=== PATIENT | male | born 1955 | race Caucasian/White ===

== ENCOUNTER 2016-11-18 08:41 | Day surgery (SDC) | payer BC ==
[2016-11-18 09:14] VITALS: BP 145/84; PULSE 71; RESP 20; TEMP 98.3
--- NOTE | 2016-11-18 11:39 | US ---
ULTRASOUND GUIDED FNA THYROID BIOPSY: CLINICAL HISTORY: Palpable abnormality left axilla FINDINGS: The procedure was explained to the patient. The risks, complications, benefits and alternatives were discussed and any questions were answered. Informed consent was obtained. Patient was placed supin e on the ultrasound table and prepped and draped in the usual sterile fashion. Utilizing a 18-gauge and 16-gauge core biopsy needle, five passes were made into the left axilla nodule. Note is made the lesion is somewhat nondescript but overlies area of palpable abnormality. Possible lipoma. Other jose luis ologies not excluded. Patient was stable throughout the procedure. Pathology is pending. All elements of maximal barrier technique were utilized. IMPRESSION: 1. Successful ultrasound guided core biopsy left axilla nodule. Pathology pending.
== END 2016-11-18 10:15 | disposition home or self-care (01) ==
LOC: RADPROMAIN 08:41
PROVIDERS: ATTEND Surgery
DX: R22.9 Localized swelling, mass and lump, unspecified (principal); L98.9 Disorder of the skin and subcutaneous tissue, unspecified
CPT/HCPCS: 11100; 20206; 76942; 88305

== ENCOUNTER → 2019-06-29 | Day surgery (SDC) | payer MEDICARE, BC ==
[2019-06-27 11:41] VITALS: BMI 27.9
[~2019-06-29] MED LIST: LACTATED RINGERS 1,000 ML IV ONE; LACTATED RINGERS 1,000 ML IV SCH; LIDOCAINE 1% 20 ML VIAL (10MG/ML) FOR IV START INTRADERMA PRN; LIDOCAINE 1% INJ 10MG/ML (20 ML MDV) ONE; PROPOFOL 10 MG/ML 20 ML VIAL IV ONE
[2019-06-29 09:04] VITALS: TEMP 98
--- NOTE | 2019-06-29 10:10 | P.PCN ---
Date of Procedure: 06/29/19 Procedure(s) Performed: BRIEF HISTORY: Patient is a 63-year-old pleasant male scheduled for an elective colonoscopy as a part of evaluation of prior history of colon polyps. Last colonoscopy was 5 years ago. PROCEDURE PERFORMED: Colonoscopy. PREOPERATIVE DIAGNOSIS: History of colon polyps. IV sedation per Anesthesia. PROCEDURE: After informed consent was obtained, the patient, was brought into the endoscopy unit. IV sedation was administered by Anesthesia under continuous monitoring. Digital rectal examination was normal. Initially the Olympus CF-160 flexible video colonoscope was then inserted in the rectum, gradually advanced into the cecum without any difficulty. Careful examination was performed as the scope was gradually being withdrawn. Ileocecal valve and the appendiceal orifice were visualized and appeared normal. Prep was excellent. Mucosa of the cecum, ascending colon, transverse colon, descending colon, sigmoid colon, and rectum appeared normal. Retroflexion was performed in the rectum and no lesions were seen. The patient tolerated the procedure well. IMPRESSION: Normal-appearing colon from rectum to cecum with no evidence of colorectal neoplasia . RECOMMENDATIONS: Findings of this examination were discussed with the patient as well as his family. He was advised to have a repeat surveillance colonoscopy in 5 years from now because of the prior history of colon polyps.
[2019-06-29 10:14] VITALS: RESP 16
[2019-06-29 10:34] VITALS: BP 138/80; PULSE 74
== END ==
LOC: ORWHC2ENDO 08:44
PROVIDERS: ATTEND Internal Medicine Gastroenterology
DX: Z12.11 Encounter for screening for malignant neoplasm of colon (principal); I10 Essential (primary) hypertension; K21.9 Gastro-esophageal reflux disease without esophagitis; Z86.010 Personal history of colon polyps; Z88.5 Allergy status to narcotic agent; Z87.442 Personal history of urinary calculi; Z79.82 Long term (current) use of aspirin; Z79.899 Other long term (current) drug therapy; Z98.890 Other specified postprocedural states
CPT/HCPCS: 45378

== ENCOUNTER → 2020-03-20 | Outpatient (CLI) | payer MEDICARE, BC ==
--- NOTE | 2020-03-20 15:53 | US ---
EXAMINATION TYPE: US venous doppler duplex LE RT DATE OF EXAM: 03/20/2020 3:41 PM COMPARISON: NONE CLINICAL HISTORY: I80.9 Phlebitis and thrombophlebitis. edema got leg stepped on by a horse SIDE PERFORMED: Right TECHNIQUE: The lower extremity deep venous system is examined utilizing real time linear array sonog harinder with graded compression, doppler sonography and color-flow sonography. VESSELS IMAGED: External Iliac Vein (EIV) Common Femoral Vein Deep Femoral Vein Greater Saphenous Vein * Femoral Vein Popliteal Vein Small Saphenous Vein * Proximal Calf Veins (* superficial vessels) Right Leg: Negative for DVT Grayscale, color doppler, spectral doppler imaging performed of the deep veins of the right lower ext remity. There is normal flow, compressibility, vascular waveforms. IMPRESSION: No ultrasound evidence for acute DVT in the right lower extremity.
== END | disposition home or self-care (01) ==
LOC: RADUSWWP 15:13
PROVIDERS: ATTEND Physician Assistant
DX: I80.9 Phlebitis and thrombophlebitis of unspecified site (principal)

== ENCOUNTER → 2020-08-18 | Outpatient (CLI) | payer MEDICARE, BC ==
[2020-08-18 11:26] LABS: Creatine Kinase MB 0.3 ng/mL (0.0-2.4); Troponin I <0.012 ng/mL (0.000-0.034)
== END | disposition home or self-care (01) ==
LOC: LABWHC1 10:02
PROVIDERS: ATTEND Family Medicine
DX: R06.09 Other forms of dyspnea (principal); R10.13 Epigastric pain
CPT/HCPCS: 36415; 82553; 83615; 84484

== ENCOUNTER → 2020-08-18 | Outpatient (CLI) | payer MEDICARE, BC ==
--- NOTE | 2020-08-18 16:19 | XR ---
Left hip HISTORY: Pain 2 views of left hip There is marginal spurring at the femoral head, lateral aspect of the acetabulum. Bone mineralization is maintained, and joint space is mildly reduced. No fracture or dislocation. IMPRESSION: Osteoarthritis.
== END | disposition home or self-care (01) ==
LOC: RADXRMAIN 10:32
PROVIDERS: ATTEND Family Medicine
DX: M16.12 Unilateral primary osteoarthritis, left hip (principal)
CPT/HCPCS: 73502

== ENCOUNTER → 2022-11-09 | Outpatient (CLI) | payer MEDICARE, BC ==
[2022-11-09 16:34] LABS: HCT 51.4 % (39.6-50.0); HGB 17.3 g/dL (13.0-17.0); MCH 29.3 pg (27.0-32.0); MCHC 33.7 g/dL (32.0-37.0); Mean Platelet Volume 9.2 fL (9.5-12.2); NRBC Per 100 WBC 0 /100 WBCS (0.0-0.0); Platelet Count 241 X 10*3/uL (140-440); RBC 5.91 X 10*6/uL (4.40-5.60); RDW 12.6 % (11.5-14.5); WBC 5.81 X 10*3/uL (4.50-10.00)
[2022-11-09 16:46] LABS: ALT 29 U/L (10-49); AST 24 U/L (14-35); African American GFR (CKD) 100.6 (60.0-200.0); BUN/Creat Ratio 18.78 Ratio (12.00-20.00); Blood Urea Nitrogen 16.9 mg/dL (9.0-27.0); Calcium 9.6 mg/dL (8.7-10.3); Carbon Dioxide 26.5 mmol/L (20.0-27.5); Chloride 103 mmol/L (96-109); Glucose 103 mg/dL (70-110); LDL Cholesterol,Calculated 110.4 mg/dL (0.0-131.0); Non-African American GFR(CKD) 86.8 (60.0-200.0); Potassium 4.3 mmol/L (3.5-5.5); Sodium 140 mmol/L (135-145); VLDL Calculation 17.32 mg/dL (5.00-40.00)
== END | disposition home or self-care (01) ==
LOC: LABWHC1 08:55
PROVIDERS: ATTEND Internal Medicine Cardiovascular Disease
DX: E78.2 Mixed hyperlipidemia (principal)
CPT/HCPCS: 36415; 80048; 80061; 84450; 84460; 85027

== ENCOUNTER → 2023-09-12 | Outpatient (CLI) | payer MEDICARE, BC ==
--- NOTE | 2023-09-12 12:26 | CT ---
EXAMINATION TYPE: CT abdomen pelvis wo con DATE OF EXAM: 09/12/2023 COMPARISON: None HISTORY: GROIN PAIN CT DLP: 1278 mGycm Automated exposure control for dose reduction was used. TECHNIQUE: Helical acquisition of images was performed from the lung bases through the pelvis. FINDINGS: The lung bases are clear. There is no gallbladder distention, pericholecystic fluid, wall thickening or gallstone. There is no organomegaly involving the liver, pancreas, spleen or adrenal glands. There is mild left renal atrophy and multiple left parapelvic cysts. There is no renal calcification or hydronephrosis. Caliber of the abdominal aorta is normal there is no retroperitoneal adenopathy. The bowel loops are normal in caliber and there is no dilatation or obstruction. No inflammatory adamson ges identified in the bowel wall and mesentery and there is no free intraperitoneal air or fluid. There is no pelvic mass, free fluid or adenopathy. There is moderate prostatic hypertrophy and centra l prostatic calcification. There is a 4.2 cm left inguinal hernia containing fat but no bowel. No focal osseous lesions are seen. IMPRESSION: 1. Moderate prostatic hypertrophy. 2. Left inguinal hernia containing fat. 3. No pelvic adenopathy, abscess, free fluid or inflammatory change.
== END | disposition home or self-care (01) ==
LOC: RADCTMAIN 11:58
PROVIDERS: ATTEND Family Medicine
DX: N40.0 Benign prostatic hyperplasia without lower urinary tract symptoms (principal); K40.90 Unilateral inguinal hernia, without obstruction or gangrene, not specified as recurrent
CPT/HCPCS: 74176

== ENCOUNTER → 2024-05-14 | Day surgery (SDC) | payer MEDICARE, BC ==
[2024-05-09 13:48] VITALS: BMI 29.2
[~2024-05-14] MED LIST changes: +ACETAMINOPHEN TAB 325 MG TAB PO SCH; +GLYCOPYRROLATE 0.2 MG/ML 2 ML VIAL ONE; +IBUPROFEN 600 MG TAB PO SCH; +KETOROLAC 15 MG/ML 1 ML VIAL ONE; -LACTATED RINGERS 1,000 ML IV ONE; -LACTATED RINGERS 1,000 ML IV SCH; +LIDOCAINE 1% (10MG/ML) FOR IV START INTRADERMA PRN; -LIDOCAINE 1% 20 ML VIAL (10MG/ML) FOR IV START INTRADERMA PRN; +MIDAZOLAM 2 MG/2 ML VIAL ONE; +NEOSTIGMINE 1 MG/ML 10 ML VIAL ONE; +ROCURONIUM 10 MG/ML (5 ML VIAL) IV ONE; +SUCCINYLCHOLINE CHLORIDE 200 MG/10 ML VIAL IV ONE; +droPERidol 5 MG/2 ML VIAL IVP ONE; +fentaNYL (PF) 50 MCG/ML 2 ML AMP IV PRN; +fentaNYL (PF) 50 MCG/ML 2 ML AMP ONE
[2024-05-14 06:46] VITALS: TEMP 97.7
[2024-05-14] MEDS: IV FLUID CONTINUATION 1,000 ML IV ONE (06:55)
[2024-05-14] MEDS: ACETAMINOPHEN TAB 500 MG TAB PO PRN (07:03)
[2024-05-14 07:04] LABS: HCT 52.1 % (39.0-53.0); HGB 17.3 gm/dL (13.0-17.5); MCH 30.3 pg (25.0-35.0); MCHC 33.1 g/dL (31.0-37.0); MCV 91.5 fL (80.0-100.0); Mean Platelet Volume 6.9; Platelet Count 259 k/uL (150-450); RDW 12.7 % (11.5-15.5); WBC 5.3 k/uL (3.8-10.6)
[2024-05-14] MEDS: LACTATED RINGERS 1,000 ML IV SCH (07:04)
[2024-05-14] MEDS: DEXAMETHASONE SOD PHOSPHATE 4 MG/ML 1 ML VIAL IV ONE (07:05)
[2024-05-14] MEDS: ONDANSETRON 4 MG/2 ML VIAL IVP ONE (07:05)
[2024-05-14] MEDS: HEPARIN SODIUM,PORCINE 5,000 UNIT/ML 1 ML VIAL SQ PRN (07:05)
[2024-05-14] MEDS: TAMSULOSIN 0.4 MG CAP.ER.24H PO STA (07:34)
--- NOTE | 2024-05-14 07:35 | P.GSHP ---
History of Present Illness H&P Date: 05/14/24 Chief Complaint: Left inguinal hernia 68-year-old male here with complaints of left inguinal hernia. Seen in the office earlier this year. Did lose some weight over the summer. Still having pain in the left scrotum. Feels a bulge there most of the time. History of previous left testicular and spermatic cord trauma. Underwent exploration of the cord and was found to have scar tissue many years ago. No history of previous hernia. CAT scan from August shows a fatty left inguinal hernia that may represent just a large spermatic cord lipoma. Past Medical History Past Medical History: GERD/Reflux, Hypertension Additional Past Medical History / Comment(s): kidney stones History of Any Multi-Drug Resistant Organisms: None Reported Past Surgical History: Heart Catheterization, Orthopedic Surgery Additional Past Surgical History / Comment(s): kidney stone removal, repair of achilles tendon, bone spur removal, lymph node removed-neck, left testicle surgery Past Anesthesia/Blood Transfusion Reactions: No Reported Reaction Past Psychological History: No Psychological Hx Reported Smoking Status: Never smoker Past Alcohol Use History: Occasional Past Drug Use History: None Reported - Past Family History Father Family Medical History: Cancer, CVA/TIA, Myocardial Infarction ([place]) Brother(s) Family Medical History: Coronary Artery Disease (CAD) Additional Family Medical History / Comment(s): triple bypass Medications and Allergies Home Medications Medication Instructions Recorded Confirmed Type Losartan [Cozaar] 50 mg PO DAILY 05/09/24 05/14/24 History Allergies Allergy/AdvReac Type Severity Reaction Status Date / Time hydromorphone HCl AdvReac Nausea & Verified 05/14/24 06:38 [From Dilaudid] Vomiting Surgical - Exam Vital Signs Temp Pulse Resp BP Pulse Ox 97.7 F 82 18 117/77 97 05/14/24 06:44 05/14/24 06:44 05/14/24 06:44 05/14/24 06:44 05/14/24 06:44 Physical exam: General: Well-developed, well-nourished HEENT: Normocephalic, sclerae nonicteric Abdomen: Nontender, nondistended, slight fullness left inguinal region without definite hernia palpable on today's exam. Previous exam showed a incarcerated left inguinal hernia Extremities: No edema Neuro: Alert and oriented Results - Labs 05/14/24 06:54 Assessment and Plan (1) Left inguinal hernia Narrative/Plan: 68-year-old male with left inguinal hernia. Will proceed with laparoscopic da Rubén assisted repair left inguinal hernia with mesh, possible open, possible bilateral. Patient complaining of some fullness and thickening of the distal as pect of his scrotum. This could reflect a large cord lipoma which will be excised at the time of surgery. It is possible that there is no defined left indirect or direct inguinal hernia with a sac present. Discussed with patient that he may have some residual thickening and fullness in the scrotum after this procedure and if so may require urology evaluation. Risks of bleeding, infection, recurrence, bladder and bowel injury, numbness, nerve injury, conversion to an open procedure were discussed with the patient. The patient understands and wishes to proceed. Current Visit: Yes Status: Acute Code(s): K40.90 - UNIL INGUINAL HERNIA, W/O OBST OR GANGR, NOT SPCF RECUR SNOMED Code(s): 120193033
[2024-05-14] MEDS: BUPIVACAINE (PF) 0.25% 30 ML VIAL MISCELLANE ONE (07:58)
[2024-05-14] MEDS: LACTATED RINGERS 1,000 ML IV ONE (09:20)
--- NOTE | 2024-05-14 09:52 | P.OP ---
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 Madsen ANESTHESIA: General OPERATIVE PROCEDURE DETAILS: Patient was placed in the operating table in the supine position. The patient was placed under general anesthesia. The abdomen was prepped and draped in usual sterile fashion. A small curvilinear s upraumbilical incision was made. The fascia was retracted anteriorly with [place] forceps. The Veress needle was inserted. The saline drop test was normal. Insufflation took place to 15 mmHg. An 8 mm trocar was placed into the peritoneal cavity. 2 additional 8 mm trochars were placed in the right upper quadrant and left upper quadrant under visualization. The robotic arms were then brought in and docked into place. The fenestrated bipolar was used in the left arm and the laparoscopic kris was utilized in the right arm. A 30 8 mm scope was used in the up position. The peritoneal cavity was inspected. The patient had a start of a tiny right inguinal hernia that was not addressed. This measured less than 1 cm in size. A left indirect inguinal hernia was noted. This was small to moderate in size. The peritoneum was incised in a horizontal fashion cephalad to the internal inguinal ring. Following that careful dissection of the preperitoneal space took place. This took place using both electrocautery, sharp dissection but primarily blunt dissection. Visualization of the pubic tubercle and Gene's ligament took place medially. Full dissection took place laterally as well. The hernia sac was fully dissected. There was a large lipoma of the cord as per the patient's recent CAT scan. This was excised using a combination of electrocautery and the vessel sealer. This was later removed from the right sided incision site with an Endo Catch bag. Additionally the patient had a tiny direct hernia medially. Once we had adequate space the [id number] Progrip mesh was advanced into the preperitoneal space and flattened out appropriately to cover all potential hernia sites. Mesh was sutured to the Gene's ligament using a running absorbable 3 OV lock suture. The peritoneal defect was then closed using a absorbable 2-0 VLok suture. The hernia sac was incorporated into the peritoneal closure to help prevent future recurrence. A single 0 Vicryl stitch was used to close the right sided trocar site given the dilation of that area required to get the cord lipoma out. The pneumoperitoneum was then evacuated. The skin of all 3 sites was closed using a 4-0 Monocryl stitch. Skin glue was then applied. TYPE OF MESH USED: 15 x 10 cm ProGrip LOCATION OF MESH: Preperitoneal FIXATION: Absorbable 3 oh V-Loc PREOPERATIVE DISCUSSION ON SMOKING CESSASTION: Yes PREOPERATIVE DISCUSSION ON MORBID OBESITY: Yes PREOPERATIVE DISCUSSION ON APPROPRIATE USE OF NARCOTIC USE: Yes PREOPERATIVE EDUCATION: Multi Modal, Smoking Cessation and Weight Loss with BMI over 35. DISPOSITION: Stable to recovery room
[2024-05-14 11:25] VITALS: RESP 16
[2024-05-14 11:53] VITALS: BP 113/73; PULSE 87
== END ==
LOC: OR 06:05
PROVIDERS: ATTEND Surgery
DX: K40.90 Unilateral inguinal hernia, without obstruction or gangrene, not specified as recurrent (principal)
CPT/HCPCS: 85027; 88304

== ENCOUNTER 2024-12-12 09:58 | Day surgery (SDC) | payer MEDICARE, BC ==
[2024-12-11 08:16] VITALS: BMI 31.7
[~2024-12-12 09:58] MED LIST changes: -ACETAMINOPHEN TAB 325 MG TAB PO SCH; -GLYCOPYRROLATE 0.2 MG/ML 2 ML VIAL ONE; -IBUPROFEN 600 MG TAB PO SCH; -KETOROLAC 15 MG/ML 1 ML VIAL ONE; +LACTATED RINGERS 1,000 ML IV SCH; -LIDOCAINE 1% (10MG/ML) FOR IV START INTRADERMA PRN; -LIDOCAINE 1% INJ 10MG/ML (20 ML MDV) ONE; -MIDAZOLAM 2 MG/2 ML VIAL ONE; -NEOSTIGMINE 1 MG/ML 10 ML VIAL ONE; -PROPOFOL 10 MG/ML 20 ML VIAL IV ONE; -ROCURONIUM 10 MG/ML (5 ML VIAL) IV ONE; -SUCCINYLCHOLINE CHLORIDE 200 MG/10 ML VIAL IV ONE; -droPERidol 5 MG/2 ML VIAL IVP ONE; -fentaNYL (PF) 50 MCG/ML 2 ML AMP IV PRN; -fentaNYL (PF) 50 MCG/ML 2 ML AMP ONE
[2024-12-12] MEDS: IV FLUID CONTINUATION 1,000 ML IV ONE (10:41)
[2024-12-12 11:00] VITALS: TEMP 98.2
[2024-12-12] MEDS ORDERED: LIDOCAINE 2% (PF) 20 MG/ML 5 ML VIAL ONE (11:30)
[2024-12-12] MEDS ORDERED: PROPOFOL 10 MG/ML 20 ML VIAL IV ONE (11:30)
--- NOTE | 2024-12-12 11:46 | P.PCN ---
Date of Procedure: 12/12/24 Procedure(s) Performed: BRIEF HISTORY: Patient is a 69-year-old pleasant white meat scheduled for an elective colonoscopy as a part of screening for a history of colon polyps. His last colonoscopy was 5 years ago. PROCEDURE PERFORMED: Colonoscopy with snare polypectomy. PREOPERATIVE DIAGNOSIS: Screening for history of colon polyps. IV sedation per Anesthesia. PROCEDURE: After informed consent was obtained, the patient, was brought into the endoscopy unit. IV sedation was administered by Anesthesia under continuous monitoring. Digital rectal examination was normal. Initially the Olympus CF-160 flexible video colonoscope was then inserted in the rectum, gradually advanced into the cecum without any difficulty. Careful examination was performed as the scope was gradually being withdrawn. Ileocecal valve and the appendiceal orifice were visualized and appeared normal. Prep was excellent. Mucosa of the cecum, appeared normal. In the ascending colon there was a 5 mm polyp that was removed by cold snare polypectomy. Rest of the ascending colon, transverse colon, descending colon, sigmoid colon, and rectum appeared normal. Retroflexion was performed in the rectum and no lesions were seen. The patient tolerated the procedure well. IMPRESSION: 5 mm ascending colon polyp status post cold snare polypectomy Rest of the colon appeared normal RECOMMENDATIONS: Findings of this examination were discussed with the patient as well as his family. He was advised to follow with the biopsy results. If the biopsy reveals adenoma he can have repeat colonoscopy in 5 years
[2024-12-12 12:07] VITALS: RESP 18
[2024-12-12 12:31] VITALS: BP 113/72; PULSE 81
== END 2024-12-12 12:20 | disposition home or self-care (01) ==
LOC: ORWHC2ENDO 09:58
PROVIDERS: ATTEND Internal Medicine Gastroenterology
DX: Z12.11 Encounter for screening for malignant neoplasm of colon (principal); D12.2 Benign neoplasm of ascending colon; I10 Essential (primary) hypertension; K21.9 Gastro-esophageal reflux disease without esophagitis; Z87.442 Personal history of urinary calculi; Z86.0100 Personal history of colon polyps, unspecified; Z88.5 Allergy status to narcotic agent; Z79.899 Other long term (current) drug therapy
CPT/HCPCS: 88305; 45385; J2704; J2003